=== PATIENT | female | born 1960 | race Caucasian/White ===

== ENCOUNTER 2022-03-04 20:45 | Inpatient (IN) | payer MEDICARE, OTHER ==
[~2022-03-04] VITALS: Ht 149.9 cm; Wt 81.3 kg
[2022-03-04] MEDS ORDERED: METFORMIN HCL1000 M1 PO (21:18)
[2022-03-04] MEDS ORDERED: K-TAB ER20 MEQ PO (21:19)
[2022-03-04] MEDS ORDERED: TRAZODONE HCL50 MG PO (21:19)
[2022-03-04] MEDS ORDERED: SPIRIVA RESPIMAT4 GM INH (21:20)
[2022-03-04] MEDS ORDERED: ALBUTEROL2.5 MG/3 M INH (21:20)
--- NOTE | 2022-03-04 22:36 | NUR ---
PT ARRIVED TO UNIT FROM ED. PT IS A/O, ON 3L NC. SINUS TACH HR 112. FAMILY IS AT BEDSIDE. CALL LIGHT WITHIN REACH.
--- NOTE | 2022-03-05 01:50 | NUR ---
ROUNDED ON PT. PT APPEARS TO BE SLEEPING COMFORTABLY. IV ABX COMPLETED. IV FLUIDS HUNG. CALL LGITH WITHIN REACH.
--- NOTE | 2022-03-05 07:30 | NUR ---
PATIENT RESTING IN BED. PER REPORT PATIE IS ON 5L NC. WILL OCNTINUE TO WEAN OXYGEN ABLE. PATIENT CALLS APPROPRIATELY. WILL CONTINUE TO CLOSELY MONITOR.
--- NOTE | 2022-03-05 08:00 | NUR ---
PATIENT UP TO CAMMODE ON HER OWN. PATIENT COULDNT FIND CALL LIGHT. PATIENT HAD A LARGE SEMI LIQUID STOOL. PATIENT BACK TO BED. ASSESSMENT COMPLETED. PATIENT BREATH SOUNDS COARSE AND WHEEZE THROUGHOUT. PATIENT BOWEL TONES ACTIVE. PATIENT PEDAL PULSES FAINT AND FEET ARE COLD. BREAKFAST PROVIDED. MEDICATIONS GIVEN. PATIENT REFUSED 1 UNIT OF INSULIN. WILL CONTINUE TO CLSOELY MONITOR.
--- NOTE | 2022-03-05 08:14 | NUR ---
PLACED BACK ON 5LPM PT DESATURATED TO 85% , FALL ASLEEP MID SENTENCE
--- NOTE | 2022-03-05 08:25 | EKG ---
[facility] [address] [place] [address] Signed Sinus tachycardia Minimal voltage criteria for LVH, may be normal variant ( Beny product ) Borderline ECG No previous ECGs available Confirmed by Ryley Washburn MD () on 03/05/2022 8:25:09 AM Electronically Signed By: RYLEY WASHBURN MD 03/05/22 0825 PATIENT NAME: HÉCTOR REN KARMEN Electrocardiogram DATE OF : 56 PHYSICIAN: RYLEY WASHBURN MD REPORT #: [id number] REPORT IS CONFIDENTIAL AND NOT TO BE RELEASED WITHOUT AUTHORIZATION
--- NOTE | 2022-03-05 10:30 | NUR ---
THIS RN IN TO ASSIST PATIENT UP TO THE BATHROOM. PATIENT TOLERATED WELL. PATIENT NOW RESTING IN THE CHIAR WITH A WARM BLANKET IN PLACE. PATIENT DENIES ANY OTHER NEEDS AT THIS TIME. WILL CONITNUE TO CLOSELY MONITOR.
--- NOTE | 2022-03-05 12:15 | NUR ---
PATIENT HAS FAMILY IN VISITING AT THIS TIME. WILL CONTINUE TO CLOSELY MONITOR.
--- NOTE | 2022-03-05 12:30 | NUR ---
PATIENT AWAKE AT SIDE OF BED. VITALS AND I&OS CHARTED. CALL LIGHT IN EASY REACH. NO OTHER NEEDS AT THIS TIME
--- NOTE | 2022-03-05 13:30 | NUR ---
NIECY RN IN TO ASSIST PATIENT UP TO THE BATHROOM. PATIENT TOELRATED WELL. PATIENT TURNED DOWN ON OXYGEN SUPPORT TO 3.5L NC. PATIENT TOELRATING WELL. PATINET DENIES ANY OTHER NEEDS AT THIS TIME. WILL CONTINUE TO CLOSELY MONITOR.
[2022-03-05] MEDS ORDERED: LASIX20 MG PO (15:31)
[2022-03-05] MEDS ORDERED: TORSEMIDE20 MG PO (15:32)
[2022-03-05] MEDS ORDERED: FLOVENT HFA12 G1 INH (15:33)
[2022-03-05] MEDS ORDERED: OMEPRAZOLE20 MG PO (15:34)
[2022-03-05] MEDS ORDERED: MELOXICAM10 MG PO (15:35)
--- NOTE | 2022-03-05 15:35 | NUR ---
PATIENT UP IN THE CHAIR AND AMBULATING BY HER SELF IN THE ROOM TO THE CAMMODE. REMINDED PATIENT TO CALL FOR STAND-BY ASSISTANCE. PATIENT NOW RESTING IN THE CHAIR. FRESH ICE CHIPS PROVIDED. PATIENT DENIES ANY OTHER NEEDS AT THIS TIME. WILL CONTINUE TO CLOSELY MONITOR.
[2022-03-05] MEDS ORDERED: TYLENOL EXTRA500 MG PO (15:36)
--- NOTE | 2022-03-05 15:38 | NUR ---
MED REC COMPLETE
--- NOTE | 2022-03-05 17:30 | NUR ---
THIS RN IN TO CHECK PATIENTS BLOOD SUGAR AND GET PATIENT HER DINNER. PATIENT SITTING UP IN THE CHAIR VISITING WITH HER FAMILY ON THE PHONE. PATIENT IS TEARFUL AT TIMES THAT SHE IS IN THE HOSPITAL WITHOUT HER FAMILY DURING THE HOLIDAYS. PATIENT THEN VISITING AND JOKING WITH STAFF. PATIENT MEDICATIONS GIVEN AND NOW EATING DINNER. PATIENT DENIES ANY OTHER NEEDS AT THIS TIME. WILL CONTINUE TO CLOSELY MONITOR.
--- NOTE | 2022-03-05 19:50 | NUR ---
RECEIVED REPORT FROM DAY SHIFT RN. PT IS A/O, VISITING WITH FAMILY. DENIES NEEDS/COMPLAINTS ATT.
--- NOTE | 2022-03-05 21:00 | NUR ---
PT ASSESSMENT AND MEDICATION ADMINISTRATION COMPLETED. PT IS A/O, CURRENTLY ON 3L NC. CALL LIGHT WITHIN REACH.
--- NOTE | 2022-03-05 21:55 | NUR ---
ASSISTED PT TO BEDSIDE COMMODE. PT AMBULATES WELL. IV ABX RUNNING. CALL LIGHT WITHIN REACH.
--- NOTE | 2022-03-05 22:26 | NUR ---
PT REQUESTING COUGH MEDICINE. ADMINISTERED TESSLON. DENIES ANY OTHER NEEDS ATT. IV ABX COMPLETED.
--- NOTE | 2022-03-06 | NUR ---
ROUNDED ON PT. PT APPEARS TO BE RESTING COMFORTABLY. CALL LIGHT WITHIN REACH.
--- NOTE | 2022-03-06 01:21 | NUR ---
ASSISTED PT WITH REPOSTIONING IN BED. PT IS A/O, RESPIRATIONS EVEN AND REGULAR. CALL LIGHT WITHIN REACH.
--- NOTE | 2022-03-06 03:43 | NUR ---
PT ASSESSMENT COMPLETED. CALL LIGHT WITHIN REACH.
--- NOTE | 2022-03-06 04:01 | NUR ---
ROUNDED ON PT. PT IS SITTING AT EOB A/O, RESPIRATIONS EVEN AND REGULAR. REMAINS ON 3L NC. DENIES NEEDS OR COMPLAINTS ATT.
--- NOTE | 2022-03-06 05:56 | NUR ---
TO PT ROOM FOR MEDICATION ADMINISTRATION. PT IS A/O, RESPIRATIONS EVEN AND REGULAR. REMAINS ON 3L NC. REFUSED CPAP FOR THE NIGHT. CALL LIGHT WITHIN REACH.
--- NOTE | 2022-03-06 07:30 | NUR ---
REPORT RECIEVED FROM BAR CAPTAIN RN. PATIENT WAS PRETTY RESTLESS THROUGH THE NIGHT AND DID NOT GET MUCH SLEEP. PATIENT ON 3L NC. WILL CONTINUE TO CLSOELY MONITOR.
--- NOTE | 2022-03-06 09:30 | NUR ---
PATIENTS ASSESSMENT COMPELTED. PATIENT UP IN THE CHAIR EATING HER BREAKFAST. MEDICATIONS GIVEN. PATIENT BREATH SOUNDS ARE DIMINISHED WITH OCC. WHEEZE THROUGHOUT. PATINE TON 3L NC. SPO2 92%. RR- EVEN AND UNLABORED. PATIENT UP TO THE CAMMODE ON HER OWN. PLAN OF CARE REVIEWED WITH MD AND PATIENT. WILL ORDER PHYSICAL THERAPY D/T PATIENT HAVING STAIRS AT HOME AND UNSURE HOW SHE WILL TOELRATE THEM.
--- NOTE | 2022-03-06 10:45 | NUR ---
PATIENT UP SITTING IN THE CHAIR. PATIENT PROVIDED WITH FRESH ICE CHIPS. PATIENT DENIES ANY OTHER NEEDS AT THIS TIME. WILL CONTINUE TO CLOSELY MONITOR.
--- NOTE | 2022-03-06 12:30 | NUR ---
PATIENTS DAUGHTER IN LAW IN ROOM VISITING WITH PATIENT. PATIENT IS IN GOOD SPIRITS. PATIENT FINISHED WORKING WITH PHYSICAL THERAPY. BLOOD SUGAR TAKEN AND LUNCH PROVIDED. WILL CONTINUE TO CLOSELY MONITOR.
--- NOTE | 2022-03-06 13:13 | NUR ---
SPOKE WITH MD WASHBURN WILL DO HOME OXYGEN QUALIFIER FOR PATIENT TO BE READY TO DISCHARGE TOMORROW.
--- NOTE | 2022-03-06 15:46 | NUR ---
THIS RN SET PATIENT UP FOR THE SHOWER. PATIENT LINEN CHANGED. PATIENT ABLE TO SHOWER HERSELF WITH NO ISSUES. MD CIFUENTES WAS BY TO SING PAPERWORK FOR HOME O2. ORDERS FAXED. THIS RN SPOKE WITH ANTONY GUEVARA AND HE IS IN TOWN AND WILL DELIVER HER SUPPLIES TODAY. WILL CONTINUE TO CLOSELY MONITOR.
--- NOTE | 2022-03-06 18:17 | NUR ---
PATIENTS FAMILY IN TO CELEBRATE MILAGRO WITH HER. PATIENT SITTING AT THE EDGE OF THE BED. PATIENT TOLERATED WELL. PATIENT UP TO BATHROOM WHEN JAZMINEIYL LEFT AND NOW RESTING BACK IN BED. PER PATIENT ANTONY CAME AND SET-UP HOME O2 THIS AFTERNOON. WILL CONTINUE TO CLOSELY MONITOR.
--- NOTE | 2022-03-06 20:05 | NUR ---
PT SITTING AT SIDE OF BED, COMPLETED NEB TREATMENT WITH RClinton, NOW HAVING EVENING SNACK AFTER CBG
--- NOTE | 2022-03-06 21:31 | NUR ---
HS MED PASS AND ASSESSMENT COMPLETE. PT IS EXCITED ABOUT DISCHARING PLAN FOR TOMORROW, EQUIPMENT ALREADY SET UP AT HOME OF HOME O2. EDUCATION ON MEDICATIONS AND SIDE EFFECTS
--- NOTE | 2022-03-06 23:00 | NUR ---
PT REPORTS HEARTBURN, ON UNIT, ORDERED MAALOX. ADMINSTERED. NO OTHER CONCERNS OR COMPLAINTS.
--- NOTE | 2022-03-07 00:02 | NUR ---
PT RESTING QUIELTY IN BED RESPIRATION RATE 18/MIN, 93% ON 2L N.C., NO DISTRESS NOTED AT THIS TIME.
--- NOTE | 2022-03-07 05:14 | NUR ---
PT ALERT AND ORIENTED THIS AM, REQUESTED SNACK AND WARM BLANKET, SHE SAID SHE WAS ABLE TO SLEEP MUCH BETTER LAST NIGHT. NO NEW CONCERNS, PLAN IS TO DISCHARGE TODAY.
--- NOTE | 2022-03-07 07:45 | NUR ---
RN IN ROOM TO VISUALIZE PT AFTER REPORT - PT SITTING UP ON EDGE OF BED ATTENDEING TO ADLS INDEPENDENTLY. CBG 135, NO INSULIN NEEDED. BREAKFAST SERVED. PT UPDATED ON POC TO DC HOME TODAY, DENIES QUESTIONS AT THIS TIME, IS ANXIOUS TO GET HOME.
[2022-03-07] MEDS ORDERED: LEVOFLOXACIN750 MG PO (08:38)
[2022-03-07] MEDS ORDERED: OSELTAMIVIR PHO75 MG PO (08:39)
[2022-03-07] MEDS ORDERED: PREDNISONE20 MG PO (08:40)
--- NOTE | 2022-03-07 09:00 | NUR ---
DAUGHTER IN LAW IN ROOM - PT DRESSED BY SELF AND BELONGINGS PACKED. DISCHARGE ORDER RECEIVED BY . PT AND DAUGHTER STATE [place] [facility] SET UP AT HOME. WILL NEED HOME TRAVEL TANK. PT REMAINS ON 2L VIA OR. PHARMACY AND RN WORKING ON DC;
[2022-03-07] MEDS ORDERED: ALBUTEROL2.5 MG/3 M INH (09:55)
--- NOTE | 2022-03-07 09:55 | NUR ---
SCHEDULED MEDS PROVIDED. NO OTHER NEEDS AT THIS TIME. CALL LIGHT IN REACH.
== END 2022-03-07 11:30 | disposition home or self-care (01) | DRG 193 ==
LOC: ED 20:45 → CCU 23:10
PROVIDERS: ADMIT Family Medicine; ATTEND Internal Medicine
PROC: 5A09357 Assistance with Respiratory Ventilation, Less than 24 Consecutive Hours, Continuous Positive Airway Pressure (ICD-10-PCS; principal; 2022-03-05)
DX: J10.08 Influenza due to other identified influenza virus with other specified pneumonia (principal); J96.01 Acute respiratory failure with hypoxia; Z20.822 Contact with and (suspected) exposure to COVID-19; J44.1 Chronic obstructive pulmonary disease with (acute) exacerbation; J15.9 Unspecified bacterial pneumonia; Z66 Do not resuscitate; E11.9 Type 2 diabetes mellitus without complications; Z88.0 Allergy status to penicillin; Z88.8 Allergy status to other drugs, medicaments and biological substances; Z79.84 Long term (current) use of oral hypoglycemic drugs; Z79.899 Other long term (current) drug therapy
CPT/HCPCS: 36415; 71045; 80053; 81001; 83605; 85025; 85610; 85730; 87502; 93005; 93010; 94640; 94660; 94667; 94668; 94761; A9270; C9803; J0456; J0696; J1650; J1815; J1885; J1956; J2920; J2930; J7121; J7512; U0003

== ENCOUNTER 2023-08-18 05:31 | Emergency (ER) | payer MEDICARE, OTHER ==
[~2023-08-18] VITALS: Ht 160 cm; Wt 77.5 kg
[~2023-08-18 05:31] MED LIST: ALBUTEROL2.5 MG/3 M INH; CLINDAMYCIN HC300 MG PO; FLOVENT HFA12 G1 INH; K-TAB ER20 MEQ PO; LASIX20 MG PO; LEVOFLOXACIN750 MG PO; MELOXICAM10 MG PO; METFORMIN HCL1000 M1 PO; OMEPRAZOLE20 MG PO; OSELTAMIVIR PHO75 MG PO; PREDNISONE20 MG PO; SPIRIVA RESPIMAT4 GM INH; TORSEMIDE20 MG PO; TRAZODONE HCL50 MG PO; TYLENOL EXTRA500 MG PO
--- OUTSIDE RECORDS SUMMARY | 2023-08-18 05:36 | XMS ---
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 Armida has no Care Guidelines for this patient. [place] VISIT COUNT (12 MO.) 2 [facility]. TOTAL 2 NOTE: Visits indicate total known visits. ED/[facility] [place] VISIT TRACKING (12 MO.) 08/18/2023 05:31 [facility] TYPE: Emergency COMPLAINT: - DENTAL PAIN 08/16/2023 06:[address] [facility] [place] TYPE: Emergency COMPLAINT: - DENTAL PROBLEM DIAGNOSES: - Allergy status to other antibiotic agents - Allergy status to other drugs, medicaments and biological substances - Allergy status to penicillin - Chronic obstructive pulmonary disease, unspecified - ad terminal makeup operator (current) use of oral hypoglycemic drugs - Other joint terminal attack controller (current) drug therapy - Other specified disorders of teeth and supporting structures - Periapical abscess without sinus INPATIENT VISIT TRACKING (12 MO.) No inpatient visits to display in this time frame [email or web address]
[2023-08-18] MEDS ORDERED: HYDROCODONE BIT/ACETAMINOPHEN 5/325 MG 1 TAB HOME.PACK PO ONE (06:15)
[2023-08-18] MEDS ORDERED: DEXAMETHASONE SOD PHOS 10 MG/ML VIAL PO ONE (06:30)
[2023-08-18] MEDS ORDERED: HYDROCODON-ACE1 EA10 PO (06:33)
[2023-08-18 06:58] VITALS: BP 152/84
== END 2023-08-18 07:01 | disposition home or self-care (01) ==
LOC: ED 05:31
DX: K04.7 Periapical abscess without sinus (principal); J44.9 Chronic obstructive pulmonary disease, unspecified; G47.30 Sleep apnea, unspecified; E11.9 Type 2 diabetes mellitus without complications; Z88.1 Allergy status to other antibiotic agents; Z79.899 Other long term (current) drug therapy; Z79.84 Long term (current) use of oral hypoglycemic drugs
CPT/HCPCS: 99282; A9270; J1100

== ENCOUNTER 2023-08-21 05:15 | Emergency (ER) | payer MEDICARE, OTHER ==
[~2023-08-21] VITALS: Ht 160 cm; Wt 77.0 kg
[~2023-08-21 05:15] MED LIST changes: +HYDROCODON-ACE1 EA10 PO
--- OUTSIDE RECORDS SUMMARY | 2023-08-21 05:17 | XMS ---
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 Armida has no Care Guidelines for this patient. [place] VISIT COUNT (12 MO.) 3 [facility] [place]. TOTAL 3 NOTE: Visits indicate total known visits. ED/C VISIT TRACKING (12 MO.) 08/21/2023 05:[address] [facility] [address] [facility] [place] TYPE: Emergency COMPLAINT: - TOOTH INFECTION 08/18/2023 05:31 [facility] [place] TYPE: Emergency COMPLAINT: - DENTAL PAIN DIAGNOSES: - Allergy status to other antibiotic agents - Chronic obstructive pulmonary disease, unspecified - Jaw pain - technician terminal and repeater (current) use of oral hypoglycemic drugs - Other long-term (current) drug therapy - Periapical abscess without sinus - Sleep apnea, unspecified - Type 2 diabetes mellitus without complications 08/16/2023 06:19 [facility] [place] [place] TYPE: Emergency COMPLAINT: - DENTAL PROBLEM DIAGNOSES: - Allergy status to other antibiotic agents - Allergy status to other drugs, medicaments and biological substances - Allergy status to penicillin - Chronic obstructive pulmonary disease, unspecified - half-way (current) use of oral hypoglycemic drugs - Other long-term (current) drug therapy - Other specified disorders of teeth and supporting structures - Periapical abscess without sinus INPATIENT VISIT TRACKING (12 MO.) No inpatient visits to display in this time frame [email or web address]
[2023-08-21] MEDS ORDERED: DEXAMETHASONE SOD PHOS 10 MG/ML VIAL IV ONE (06:00)
[2023-08-21] MEDS ORDERED: FAMOTIDINE 20 MG/ 2 ML VIAL IV ONE (06:00)
[2023-08-21] MEDS ORDERED: HYDROmorphone HCL 1 MG/ML SYR IV PRN (06:00)
[2023-08-21] MEDS ORDERED: ondansetron HCL 4 MG/2 ML VIAL IV ONE (06:00)
[2023-08-21 06:12] LABS: BASOPHILS 0.7 % (0-2); EOSINOPHILS 1.2 % (0-6); HEMATOCRIT 36.2 % (35.0-50.0); HEMOGLOBIN 11.7 g/dL (12.0-18.0); LYMPHOCYTES 15.1 % (24-44); MCH 29.4 (27-36); MCHC 32.4 g/dl (30-36); MCV 90.7 fl (81-99); MONOCYTES 10.9 % (0-12); NEUTROPHILS 72.1 % (39-80); PLATELET COUNT 298 K/uL (140-440); RBC 3.99 M/ul (4.3-5.7); RDW 14.1 (10.5-15.0)
[2023-08-21 06:23] LABS: ALBUMIN 3.2 g/dL (3.4-5.0); ALBUMIN/GLOBULIN RATIO 0.82 (1.1-2.4); ANION GAP 13.8 (7-21); BILIRUBIN, TOTAL 0.3 ng/dL (0.2-1.0); BUN/CREATININE RATIO 22.22 (6.0-28.6); CALCIUM 8.9 mg/dL (8.5-10.1); CREATININE, SERUM 0.99 mg/dL (0.55-1.02); POTASSIUM 3.8 mmol/L (3.5-5.1); PROTEIN, TOTAL 7.1 g/dL (6.4-8.2)
[2023-08-21] MEDS ORDERED: AZITHROMYCIN 500 MG in DEXTROSE 5% 250 ML IV ONE ×2 (06:45→07:45)
[2023-08-21] MEDS ORDERED: AZITHROMYCIN/DEXTROSE 500 MG/250 ML BAG IV ONE (07:30)
[2023-08-21] MEDS ORDERED: LIDOCAINE 2% VISCOUS 6 ML SYR MM ONE (08:15)
[2023-08-21] MEDS ORDERED: LIDOCAINE 2% VISCOUS 6 ML SYR TOP ONE (08:15)
[2023-08-21] MEDS ORDERED: PERIDEX473 M1 MM (09:00)
[2023-08-21] MEDS ORDERED: AZITHROMYCIN 500 MG in DEXTROSE 5% 250 ML IV SCH (09:00)
[2023-08-21 09:14] VITALS: BP 166/97
== END 2023-08-21 09:14 | disposition home or self-care (01) ==
LOC: ED 05:15
PROVIDERS: Internal Medicine
DX: K04.7 Periapical abscess without sinus (principal); J44.9 Chronic obstructive pulmonary disease, unspecified; G47.30 Sleep apnea, unspecified; E11.9 Type 2 diabetes mellitus without complications; Z88.1 Allergy status to other antibiotic agents; Z88.0 Allergy status to penicillin; Z88.8 Allergy status to other drugs, medicaments and biological substances; Z79.899 Other long term (current) drug therapy; Z79.84 Long term (current) use of oral hypoglycemic drugs
CPT/HCPCS: 36415; 41800; 70491; 80053; 85025; 86140; 99283-25; J0456; J1100; J1170; J2405; Q9967

== ENCOUNTER 2023-09-13 03:25 | Inpatient (IN) | payer MEDICARE, OTHER ==
[2023-09-13] VITALS (8 sets, daily range): BP systolic 146–162; BP diastolic 76–91
[~2023-09-13] VITALS: Ht 160 cm; Wt 79.0 kg
[~2023-09-13 03:25] MED LIST changes: +PERIDEX473 M1 MM
--- OUTSIDE RECORDS SUMMARY | 2023-09-13 03:26 | XMS ---
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 Armida has no Care Guidelines for this patient. [place] [facility] MO[facility] NOTE: Visits indicate total known visits. ED/C VISIT TRACKING (12 MO.) [facility] [place] [facility] COMPLAINT: - WOUND CHECK 08/21/2023 05:15 [facility] [place] TYPE: Emergency COMPLAINT: - TOOTH INFECTION DIAGNOSES: - Allergy status to other antibiotic agents - Allergy status to other drugs, medicaments and biological substances - Allergy status to penicillin - Chronic obstructive pulmonary disease, unspecified - [facility] (current) use of oral hypoglycemic drugs - Other keno terminal operator (current) drug therapy - Periapical abscess without sinus - Sleep apnea, unspecified - Type 2 diabetes mellitus without complications 08/18/2023 05:[address] [facility] [address] [facility] [place] TYPE: Emergency COMPLAINT: - DENTAL PAIN DIAGNOSES: - Allergy status to other antibiotic agents - Chronic obstructive pulmonary disease, unspecified - Jaw pain - termite inspector (current) use of oral hypoglycemic drugs - Other senior care (current) drug therapy - Periapical abscess without sinus - Sleep apnea, unspecified - Type 2 diabetes mellitus without complications 08/16/2023 06:[address] [facility] [address] [facility] [place] TYPE: Emergency COMPLAINT: - DENTAL PROBLEM DIAGNOSES: - Allergy status to other antibiotic agents - Allergy status to other drugs, medicaments and biological substances - Allergy status to penicillin - Chronic obstructive pulmonary disease, unspecified - termite inspector (current) use of oral hypoglycemic drugs - Other keno terminal operator (current) drug therapy - Other specified disorders of teeth and supporting structures - Periapical abscess without sinus INPATIENT VISIT TRACKING (12 MO.) No inpatient visits to display in this time frame [email or web address]
[2023-09-13] MEDS ORDERED: MORPHINE SULFATE 4 MG/ML VIAL IV ONE (03:45)
[2023-09-13] MEDS ORDERED: CLINDAMYCIN PHOSPHATE/D5W 900 MG/50 ML BAG IV ONE (03:45)
[2023-09-13 03:58] LABS: BASOPHILS 0.8 % (0-2)
[2023-09-13 04:01] LABS: EOSINOPHILS 2.9 % (0-6); HEMATOCRIT 35.3 % (35.0-50.0); HEMOGLOBIN 11.3 g/dL (12.0-18.0); LYMPHOCYTES 23.2 % (24-44); MCH 28.7 (27-36); MCHC 31.9 g/dl (30-36); MONOCYTES 11.4 % (0-12); NEUTROPHILS 61.7 % (39-80); PLATELET COUNT 343 K/uL (140-440); RBC 3.92 M/ul (4.3-5.7); RDW 14.4 (10.5-15.0)
[2023-09-13 04:13] LABS: ALBUMIN 2.9 g/dL (3.4-5.0); ALBUMIN/GLOBULIN RATIO 0.71 (1.1-2.4); ANION GAP 11.1 (7-21); BILIRUBIN, TOTAL 0.2 ng/dL (0.2-1.0); BUN/CREATININE RATIO 20.45 (6.0-28.6); CALCIUM 8.5 mg/dL (8.5-10.1); CREATININE, SERUM 0.88 mg/dL (0.55-1.02); POTASSIUM 4.1 mmol/L (3.5-5.1)
[2023-09-13] MEDS ORDERED: ERTAPENEM SODIUM 1 GM in SODIUM CHLORIDE 0.9% 50 ML IV ONE (06:30)
[2023-09-13] MEDS ORDERED: ondansetron HCL 4 MG/2 ML VIAL IV PRN (07:00)
[2023-09-13] MEDS ORDERED: ACETAMINOPHEN 325 MG TAB PO PRN (07:00)
[2023-09-13] MEDS ORDERED: MORPHINE SULFATE 4 MG/ML VIAL IV PRN (07:00)
--- NOTE | 2023-09-13 07:40 | NUR ---
PT TO RM VIA STRETCHER FROM ER. REPORT RECEIVED FROM GILDA AND DENISE RNS. PT'S SON MAGED AT BEDSIDE. PT ALERT AND ORIENTED X4, CALL LIGHT WITHIN REACH. PT REPORTS PAIN 4/10 AND TOLERABLE AT THIS TIME. PT HAS GAUZE DRSG DRAINING MOD AMT OF SEROSANGUANOUS DRAINAGE AT R) LOWER JAW ABCESS DRAINAGE SITE.
[2023-09-13] MEDS ORDERED: ERTAPENEM SODIUM 1 GM in SODIUM CHLORIDE 0.9% 50 ML IV SCH (09:00)
[2023-09-13] MEDS ORDERED: ENOXAPARIN SODIUM 40 MG/0.4 ML SYR SUB-Q SCH (09:00)
--- NOTE | 2023-09-13 09:20 | NUR ---
IN ROOM TO SPEAK WITH PATIENT. SHE IS RESTING WITH EYES CLOSED AND RESPIRATIONS EVEN AND UNLABORED. ALLOWED TO REST AT THIS TIME.
--- NOTE | 2023-09-13 10:18 | NUR ---
PATIENT IN BED AT THIS TIME. VITALS AND I&O'S CHARTED. CALL LIGHT WITHIN REACH, NO FURTHER NEEDS AT THIS TIME.
[2023-09-13] MEDS ORDERED: PHARMACY RENAL DOSE ADJUSTMENT 1 DOSE MISC PO SCH (12:00)
[2023-09-13] MEDS ORDERED: FUROSEMIDE 20 MG TAB PO SCH (12:28)
[2023-09-13] MEDS ORDERED: PANTOPRAZOLE SODIUM 40 MG TABEC PO SCH (12:29)
--- NOTE | 2023-09-13 12:43 | NUR ---
PT SITTING UP ON THE SIDE OF HER BED EATING LUNCH. CALL LIGHT WITHIN REACH.
[2023-09-13] MEDS ORDERED: IBLOOD GLUCOSE TEST STRIP 1 EA TEST XX PRN (12:45)
[2023-09-13] MEDS ORDERED: DEXTROSE 5% 1,000 ML IV PRN (12:45)
[2023-09-13] MEDS ORDERED: GLUCAGON,HUMAN RECOMBINANT 1 MG/ML VIAL SUB-Q PRN (12:45)
[2023-09-13] MEDS ORDERED: HYDROCODONE/APAP 10/325 1 TAB PO PRN (12:45)
[2023-09-13] MEDS ORDERED: ATORVASTATIN CA40 MG PO (12:45)
[2023-09-13] MEDS ORDERED: METFORMIN HCL1000 MG PO (12:45)
[2023-09-13] MEDS ORDERED: DEXTROSE 50% 50 ML SYR IV PRN ×2 (12:45)
[2023-09-13] MEDS ORDERED: FUROSEMIDE20 MG PO (12:45)
[2023-09-13] MEDS ORDERED: MELOXICAM15 MG PO (12:46)
[2023-09-13] MEDS ORDERED: GLIPIZIDE ER2.5 MG PO (12:46)
[2023-09-13] MEDS ORDERED: LOSARTAN POTAS100 MG PO (12:46)
[2023-09-13] MEDS ORDERED: POTASSIUM CHLO10 ME2 PO (12:49)
[2023-09-13] MEDS ORDERED: OMEPRAZOLE10 MG PO (12:49)
[2023-09-13] MEDS ORDERED: TRAMADOL HCL50 MG PO (12:50)
[2023-09-13] MEDS ORDERED: SPIRIVA RESPIMAT4 G1 INH (12:50)
[2023-09-13] MEDS ORDERED: METRONIDAZOLE500 MG PO (12:51)
--- NOTE | 2023-09-13 13:39 | NUR ---
UR CLINICAL REVIEW: 2 MN FOR [facility]ERSAL[facility] CRITERIA FOR INPT STAY MEDICARE INPT 09/13/23 @ 0716 ORDER MATCHES REG NO AUTH REQUIRED PER MEDICARE CRITERIA DISCHARGE TO HOME WHEN STABLE
--- NOTE | 2023-09-13 14:05 | NUR ---
PAIN MED GIVEN ORDERED FOR PAIN 6/10 TO R) JAW ABSCESS SITE.
--- NOTE | 2023-09-13 15:05 | NUR ---
PATIENT ALERT AND ORIENTED, SITTING UP IN BED. VERIFIED DEMOGRAPHICS. PATIENT LIVES ALONE IN APARTMENT, DOES HAVE TO USE STAIRS. STATES SHE IS STILL ABLE TO USE STAIRS BUT IT IS GETTING INCREASINGLY MORE DIFFICULT. STATES SHE HAS A CPAP, OXYGEN FROM [employer], AND A NEBULIZER. STATES SHE NO LONGER DRIVES, HER SON, MAGED, PROVIDES TRANSPORTATION IF SHE NEEDS IT. RECEIVES FOOD STAMPS, $143/MONTH. STATES SHE IS HAVING ISSUES PAYING HER ELECTRIC, BUT DOES RECEIVE ASSISTANCE TO PAY THAT. WHEN SHE BUYS GROCERIES, SHE HAS THEM DELIVERED SO SHE DOES NOT HAVE TO FIND TRANSPORTATION FOR SHOPPING. PATIENT IS OPEN TO SPEAK WITH [employer] REGARDING MEALS ON WHEELS AND REQUESTS TO BE SET UP WITH SERVICE. CURRENTLY DENIES OTHER NEEDS.
--- NOTE | 2023-09-13 15:14 | NUR ---
CALLED [employer] TO SET UP MEALS ON WHEELS, NO ANSWER. MESSAGE LEFT FOR EDOUARD TO PLEASE CALL BACK TO SET UP MEALS ON WHEELS.
--- NOTE | 2023-09-13 16:08 | NUR ---
SPOKE WITH EDOUARD POLANCO TO SET UP MEALS ON WHEELS SERVICES.
--- NOTE | 2023-09-13 16:27 | NUR ---
PATIENT IN BED AT THIS TIME. CALL LIGHT WITHIN REACH, NO FURTHER NEEDS AT THIS TIME.
[2023-09-13] MEDS ORDERED: Insulin Regular, Human 100 UNIT/ML ML SUB-Q SCH (17:00)
[2023-09-13] MEDS ORDERED: IBLOOD GLUCOSE TEST STRIP 1 EA TEST XX SCH (17:00)
--- NOTE | 2023-09-13 17:12 | NUR ---
pt sitting up in bed eating dinner with son at bedside. call light within reach
--- NOTE | 2023-09-13 18:44 | NUR ---
PT ASLEEP WITH RESPIRATIONS EVEN AND UNLABORED. CALL LIGHT WITHIN REACH.
--- NOTE | 2023-09-13 19:52 | NUR ---
REPORT RECIEVED BY DAY SHIFT RN. PATIENT RESTING IN BED WITH EYES CLOSED. RESPIRATIONS EVEN AND UNLABORED. CALL LIGHT IN REACH.
--- NOTE | 2023-09-13 22:20 | NUR ---
PATIENT RESTING IN BED. BS OBTAINED AND RECORDED. SS INSULIN ADMINISTERED, SEE MAR. GAUZE ON CHIN IS SATURATED WITH SEROSANQUINEOUS FLUID. PATIENT REQUESTING GAUZE ON CHIN BE CHANGE. NEW GAUZE PLACED FOR PATIENT COMFORT. PATIENT STATES "IT LOOKS SO MUCH BETTER THAN WHEN I CAME TO THE ER". PATIENT HAS NO FURTHER NEEDS. CALL LIGHT IN REACH.
--- NOTE | 2023-09-13 23:02 | NUR ---
CALL LIGHT ANSWERED. pt STATES IV IS UNCOMFORTABLE. IV DC'D IN LEFT AC. NEW IV IN LEFT FOREARM. ICE WATER REFILLED. CALL LIGHT IN REACH.
[2023-09-14] VITALS (11 sets, daily range): BP systolic 128–178; BP diastolic 59–95
--- NOTE | 2023-09-14 01:12 | NUR ---
PATIENT RESTING IN BED ON BACK WITH EYES CLOSED. RESPIRATIONS EVEN AND UNLABORED. CALL LIGHT IN REACH.
--- NOTE | 2023-09-14 03:15 | NUR ---
CALL LIGHT ANSWERED. PATIENT REPORTING 7/10 JAW, NECK AND HEADACHE PAIN. PRN PAIN MEDICATION ADMINISTERED PER PATIENT REQUEST. GAUZE ON JAW IS C/D/I. NO FURTHER NEEDS. CALL LIGHT IN REACH. PUDDING PROVIDED.
--- NOTE | 2023-09-14 05:45 | NUR ---
PATIENT RESTING IN BED. SCHEDULED IV ABX INFUSING PER ORDER. VS AND I&Os OBTAINED AND RECORDED. PATIENT DENIES PAIN AT THIS TIME. NO FURTHER NEEDS. CALL LIGHT IN REACH.
[2023-09-14 06:00] LABS: EOSINOPHILS 2.9 % (0-6); HEMATOCRIT 36.5 % (35.0-50.0); HEMOGLOBIN 11.9 g/dL (12.0-18.0); LYMPHOCYTES 23.1 % (24-44); MCH 29.2 (27-36); MCHC 32.7 g/dl (30-36); MCV 89.3 fl (81-99); MONOCYTES 9.9 % (0-12); NEUTROPHILS 63.1 % (39-80); PLATELET COUNT 377 K/uL (140-440); RBC 4.09 M/ul (4.3-5.7); RDW 14.1 (10.5-15.0)
[2023-09-14] MEDS ORDERED: MEROPENEM 1,000 MG in SODIUM CHLORIDE 0.9% 100 ML IV SCH (06:00)
[2023-09-14 06:16] LABS: ALBUMIN 2.8 g/dL (3.4-5.0); ALBUMIN/GLOBULIN RATIO 0.61 (1.1-2.4); ANION GAP 10.4 (7-21); BILIRUBIN, TOTAL 0.2 ng/dL (0.2-1.0); BUN/CREATININE RATIO 16.25 (6.0-28.6); CALCIUM 8.9 mg/dL (8.5-10.1); CREATININE, SERUM 0.8 mg/dL (0.55-1.02); POTASSIUM 4.4 mmol/L (3.5-5.1); PROTEIN, TOTAL 7.4 g/dL (6.4-8.2)
--- NOTE | 2023-09-14 07:50 | NUR ---
PT SITTING UP IN BED WITH CALL LIGHT WITHIN REACH. NO REQUESTS AT THIS TIME. ASSESSMENT COMPLETE. PT HAS CATHERINE ESPINOZAG TO R) LOWER JAW, CDI.
--- NOTE | 2023-09-14 08:15 | NUR ---
PATIENT IN BED AT THIS TIME. BLOOD SUGAR TAKEN AND CHARTED. CALL LIGHT WITHIN REACH, NO FURTHER NEEDS AT THIS TIME.
[2023-09-14] MEDS ORDERED: ERTAPENEM SODIUM 1 GM in SODIUM CHLORIDE 0.9% 50 ML IV SCH (09:00)
--- NOTE | 2023-09-14 09:20 | NUR ---
PT CURRENTLY UP SITTING AT SIDE OF BED, MEDS GIVEN. PT UP OFTEN AMBULATING AROUND ROOM, TOLERATING WELL. STATES PAIN IS TOLERABLE TO JAW AT THIS TIME.
--- NOTE | 2023-09-14 10:01 | NUR ---
PATIENT IN BED AT THIS TIME. VITALS AND I&O'S CHARTED. CALL LIGHT WITHIN REACH, NO FURTHER NEEDS AT THIS TIME.
--- NOTE | 2023-09-14 12:00 | NUR ---
PT SITTING UP AT SIDE OF BED WATCHING TV WITH SON IN ROOM. NO REQUESTS AT THIS TIME. CALL LIGHT WITHIN REACH.
--- NOTE | 2023-09-14 13:05 | NUR ---
PT FINISHED LUNCH AND STATES HER PAIN TO R) JAW IS STARTING TO DECREASE. PT STATES SHE IS GOING TO TRY TO TAKE A NAP. CALL LIGHT WITHIN REACH.
--- NOTE | 2023-09-14 13:15 | NUR ---
VISITED DURING SPIRITUAL CARE ROUNDS. PT APPEARED TO BE SLEEPING. DID NOT DISTURB. PROVIDED PRAYER.
[2023-09-14] MEDS ORDERED: TRAZODONE HCL50 MG PO (13:57)
[2023-09-14] MEDS ORDERED: MEROPENEM 500 MG in SODIUM CHLORIDE 0.9% 100 ML IV SCH (14:00)
[2023-09-14] MEDS ORDERED: FLUTICASONE PRO12 GM NAS (14:02)
[2023-09-14] MEDS ORDERED: VENTOLIN HFA18 GM INH (14:03)
--- NOTE | 2023-09-14 14:05 | NUR ---
medications reconciled using pharmacy records and PCP progress notes
--- NOTE | 2023-09-14 14:43 | NUR ---
PT ASLEEP WITH RESPIRATIONS EVEN AND UNLABORED, CALL LIGHT WITHIN REACH.
--- NOTE | 2023-09-14 15:24 | NUR ---
PATIENT IN BED AT THIS TIME. VITALS AND I&O'S CHARTED AT 1400. CALL LIGHT WITHIN REACH, NO FURTHER NEEDS AT THIS TIME.
--- NOTE | 2023-09-14 16:16 | NUR ---
IV ANTIBIOTIC INFUSING, IV SITE WNL. CALL LIGHT WITHIN REACH, NO REQUESTS AT THIS TIME.
--- NOTE | 2023-09-14 17:13 | NUR ---
pt sitting up at side of bed eating dinner. call light within reach.
--- NOTE | 2023-09-14 19:36 | NUR ---
REPORT RECIEVED FROM DAY SHIFT RN. PATIENT RESTING IN CHAIR WITH EYES CLOSED. RESPIRATIONS EVEN AND UNLABORED. CALL LIGHT IN REACH.
--- NOTE | 2023-09-14 20:20 | NUR ---
PATIENT RESTING IN BED. ASSESSMENT COMPLETE. PATIENT REPORTS 10/10 JAW PAIN. PRN PAIN MEDICATION ADMINSITERED. SCHEDULED IV ABX INFUSING PER ORDER. BS OBTAINED AND RECORDED. SS INSULIN ADMINISTERED. FACIAL GAUZE C/D/I. VS AND I&Os OBTAINED AND RECORDED. IV FLUSHES WNL. PATIENT DENIES NEEDS AT THIS TIME. CALL LIGHT IN REACH.
--- NOTE | 2023-09-14 23:11 | NUR ---
PATIENT RESTING IN BED WITH EYES CLOSED. RESPIRATIONS EVEN AND UNLABORED. CALL LIGHT IN REACH.
--- NOTE | 2023-09-14 23:55 | NUR ---
NIO BOWEL MEDICATION ORDERED PER PATIENT REQUEST.
[2023-09-15] VITALS (8 sets, daily range): BP systolic 137–178; BP diastolic 74–92
--- NOTE | 2023-09-15 00:10 | NUR ---
PATIENT RESTING IN BED AND DENIES FURTHER NEEDS. CALL LIGHT IN REACH. REPIRATIONS EVEN AND UNLABORED.
--- NOTE | 2023-09-15 01:58 | NUR ---
NEW BAG IV ABX INFUSING PER ORDER. PATIENT REPORTS 8/10 HEADACHE AND JAW PAIN. PRN PAIN MEDICATION ADMINISTERED. GAUZE REMOVED FROM PATIENT R SIDE OF JAW. DRAINAGE NOTED INSIDE GAUZE. PRUNE JUICE PROVIDED, PUDDING PROVIDED. NO FURTHER NEEDS. CALL LIGHT IN REACH.
--- NOTE | 2023-09-15 02:11 | NUR ---
CALL LIGHT ANSWERED. PATIENT REQUESTING GAUZE TO BE PUT BACK ON HER CHIN. PATIENT LOOKED IN MIRROR AND STATES "OH MY GOSH, IT LOOKS SO MUCH BETTER!. THIS RN PUT GAUZE OVER WOUND ON CHIN WITH 2 PEICES OF TAPE TO HOLD IT IN PLACE. NO FURTHER NEEDS AT THIS TIME. CALL LIGHT IN REACH.
--- NOTE | 2023-09-15 04:14 | NUR ---
PATIENT RESTING IN BED WITH EYES CLOSED. RESPIRATIONS EVEN AND UNLABORED. CALL LIGHT IN REACH.
--- NOTE | 2023-09-15 05:16 | NUR ---
CALL LIGHT ANSWERED. PT NEEDED TO USE BATHROOM. PAYROLL PROFESSIONAL SBA TO BATHROOM. OUTPUT NOTED. PAYROLL PROFESSIONAL OBTAINED VITALS AND I&O. PT STATES NO FURTHER NEEDS AT THIS TIME. CALL LIGHT WITHIN REACH.
--- NOTE | 2023-09-15 07:20 | NUR ---
REPORT RECEIVED FROM NIGHT RN - PT UP IN CHAIR AND COMPLAINING OF HEADACHE AND STOMACH ACHE. CBG OBTAINED PER PT REQUEST. WNL.
[2023-09-15 07:42] LABS: BASOPHILS 0.9 % (0-2); EOSINOPHILS 2.7 % (0-6); HEMATOCRIT 38.6 % (35.0-50.0); HEMOGLOBIN 12.7 g/dL (12.0-18.0); LYMPHOCYTES 22.9 % (24-44); MCH 29.3 (27-36); MCHC 32.8 g/dl (30-36); MCV 89.2 fl (81-99); MONOCYTES 11.7 % (0-12); NEUTROPHILS 61.8 % (39-80); PLATELET COUNT 382 K/uL (140-440); RBC 4.33 M/ul (4.3-5.7); RDW 14.1 (10.5-15.0)
[2023-09-15 07:56] LABS: ANION GAP 10.7 (7-21); BUN/CREATININE RATIO 27.14 (6.0-28.6); CALCIUM 9.5 mg/dL (8.5-10.1); CREATININE, SERUM 0.7 mg/dL (0.55-1.02); POTASSIUM 4.7 mmol/L (3.5-5.1)
--- NOTE | 2023-09-15 08:15 | NUR ---
SANITARIAN in room. Pt stated, "I am not feeling real well this morning." Pt positive for dizziness and headache. Pt requesting breakfast. RN notified of pt symptoms. RN approved administration of juice. Breakfast and juice brought to the room. Call light within reach.
[2023-09-15 08:54] LABS: ERYTHROCYTE SEDIMENTATION RATE 88
[2023-09-15] MEDS ORDERED: SENNOSIDES/DOCUSATE 1 EA TAB PO SCH (09:00)
--- NOTE | 2023-09-15 09:40 | NUR ---
PT UP IN CHAIR, ALERT. COMPLAINS OF HEADACHE AND IS REQUESTING PRN FOR THIS. GAUZE TO JAW IS C/D/I. PT STATES SHE FEELS LIKE SWELLING AND PAIN IS IMPROVING. IV SITE INFILTRATED, NEW SITE STARTED ON RIGHT FOREARM. PT INDEPENDENT IN ROOM TO BATHROOM. BOWEL CARE STARTED FOR COMPLAINTS OF CONSTIPATION. CALL LIGHT IN REACH.
--- NOTE | 2023-09-15 11:00 | NUR ---
PT RESTING IN BED WITH EYES CLOSED, RR EVEN AND UNLABORED. CALL LIGHT IN REACH.
--- NOTE | 2023-09-15 12:23 | NUR ---
INSULIN COVERAGE ADMINISTERED - PT DENIES PAIN. SITTING ON EDGE OF BED EATING LUNCH. CALL LIGHT IN REACH, DENIES NEEDS.
--- NOTE | 2023-09-15 13:40 | NUR ---
RECEIVED REPORT FROM ARNOLD SMITH. ASSUMING CARE OF PT.
--- NOTE | 2023-09-15 14:10 | NUR ---
IV PUMP ALARMING, INFUSION COMPLETE. IV SALINE LOCKED. PT STATES NO CURRENT NEEDS. CALL LIGHT WITHIN REACH.
--- NOTE | 2023-09-15 16:32 | NUR ---
PT IV WRAPPED, PT UP TO SHOWER. PT STATES SHE IS HAVING NECK PAIN AND A HEADACHE THAT IS 9/10 PAIN, REQUESTS PRN PAIN MEDICATION, GIVEN. PT STATES NO FURTHER NEEDS AT THIS TIME, CALL LIGHT WITHIN REACH.
--- NOTE | 2023-09-15 16:33 | NUR ---
PATIENT IS RESTING IN BED. SHE DIDNT FEEL VERY WELL THIS MORNING. PT HAS WATER AND CALL LIGHT WITHIN REACH.
--- NOTE | 2023-09-15 17:39 | NUR ---
PT JUST FINISHED DINNER. PTs SON CAME TO VISIT AND ASKED WHO HER TECHNOLOGY SALES REPRESENTATIVE WAS, HE HAS SOME QUESTIONS AND WOULD LIKE TO SPEAK WITH VLAD. PT IS DOING OK AND MAY POSSIBLY WANT TO TAKE A SHOWER IN A BIT. SHE SAID SHE JUST FEELS "IRBAHIMA" RIGHT NOW. CALL LIGHT WITHIN REACH AND HAS ICE WATER.
--- NOTE | 2023-09-15 18:42 | NUR ---
IV PUMP ALARMING, INFUSION COMPLETE. IV SALINE LOCKED. PT STATES SHE WOULD LIKE TO SHOWER, SHOWER SUPPLIES PROVIDED. IV WRAPPED BY DEVELOPMENT CHEMIST. PT STATES NO FURTHER NEEDS AT THIS TIME, CALL LIGHT WITHIN REACH.
--- NOTE | 2023-09-15 18:58 | NUR ---
PT BACK TO BED AFTER SHOWER. DRESSING ON FACE REPLACED. NEW GOWN PROVIDED. PT STATES NO NEEDS AT THIS TIME, CALL LIGHT WITHIN REACH.
--- NOTE | 2023-09-15 19:15 | NUR ---
REPORT RECEIVED FROM DAY RN. PATIENT RESTING IN RECLINER IN ROOM. DAY SHIFT RN AND THIS RN ASSESSED RIGHT MANDIBLE SURGICAL SITE. LOOP DRAIN IN PLACE, MINIMIAL AMOUNT OF DRAINAGE NOTED ON GAUZE. PATIENT WITH NO C/O PAIN OR DISCOMFORT AT THIS TIME. CALL LIGHT WITHIN REACH.
--- NOTE | 2023-09-15 20:29 | NUR ---
ORNAMENTAL IRON WORKER OBTIANED VITALS AND BLOOD SUGAR. NO NEW I&O NOTED. PT REQUESTED A SNACK. ORNAMENTAL IRON WORKER BROUGHT PT CRACKERS AND A SUGAR FREE PUDDING. PT STATES NO FURTHER NEEDS AT THIS TIME. CALL LIGHT WITHIN REACH.
--- NOTE | 2023-09-15 20:53 | NUR ---
PATIENT SITTING ON THE SIDE OF THE BED EATTING A SNACK. DENIES ANY PAIN OR DISCOMFORT AT THIS TIME. IV ABX HUNG. IV SITE PATENT. DRESSING TO RIGHT MANDIABLE REMAINS CDI. LUNG SOUNDS CTA, BOWEL TONES ACTIVE X 4 QUADRANTS. REFUSED HS SENNA DUE TO HAVING M[place]LIPLE BOWEL MOVEMENTS TODAY. VSS. NO FURTHER NEEDS AT THIS TIME. CALL LIGHT WITHIN REACH.
--- NOTE | 2023-09-15 21:25 | NUR ---
CALL LIGHT ANSWERED. PT NEEDED TO USE BATHROOM. CAN SBA WITH IV TOWER TO BATHROOM. PT STATED SHE WOULD LIKE TO SIT IN THE CHAIR TO WATCH [place] FRM WINDOW. PT IN CHAIR AND STATES NO FURTHER NEEDS AT THIS TIME. CALL LIGHT WITHIN REACH.
--- NOTE | 2023-09-15 22:50 | NUR ---
PATIENT RESTING IN BED AWAKE WATCHING TV. NO C/O PAIN OR DISCOMFORT AT THIS TIME. IV ABX INFUSING WITH NO ISSUES. NO FURTHER NEEDS CALL LIGHT WITHIN REACH.
[2023-09-16] VITALS (7 sets, daily range): BP systolic 138–178; BP diastolic 84–96
--- NOTE | 2023-09-16 00:18 | NUR ---
PATIENT RESTING IN BED WITH EYES CLOSED. RESPIRATIONS EVEN AND UNLABORED. CALL LIGHT WITHIN REACH.
--- NOTE | 2023-09-16 01:05 | NUR ---
CALL LIGHT ANSWERED. PT NEEDED TO USE BATHROOM. VERIFIER SBA TO BATHROOM. OUT PUT NOTED. PT BACK IN BED AND STATED THAT HER JAW WAS STARTING TO HURT AND INQUIRED ABOUT PAIN MEDS. RN NOTIFIED. PT STATES NO FURTHER NEEDS AT THIS TIME. CALL LIGHT PLACED WITHIN REACH.
--- NOTE | 2023-09-16 01:17 | NUR ---
PATIENT REQUESTING PAIN MEDICATIONS. PRN GIVEN. 0200 ABX STARTED. IV SITE REMAINS PATENT. NO FURTHER NEEDS AT THIS TIME. CALL LIGHT WITHIN REACH.
--- NOTE | 2023-09-16 03:30 | NUR ---
PATIENT RESTING IN BED WITH EYES CLOSED. RESPIRATIONS EVEN AND UNLABORED. CALL LIGHT WITHIN REACH.
--- NOTE | 2023-09-16 04:19 | NUR ---
PATIENT RESTING IN BED LAYING ON HER LEFT SIDE WITH EYES CLOSED. RESPIRATIONS EVEN AND UNLABORED. CALL LIGHT WITHIN REACH.
--- NOTE | 2023-09-16 04:55 | NUR ---
call light answered, iv abx complete. iv site saline locked. gas check pad maker in room with pt to assist her to bathroom.
--- NOTE | 2023-09-16 04:58 | NUR ---
CALL LIGHT ANSWERED. IV PUMP WAS ALARMING. OUTPATIENT ADMITTING CLERK AND RN ENTERED ROOM. OUTPATIENT ADMITTING CLERK OBTAINED VITALS AND I&O. PT AMBULATED TO BATHROOM. PT STATES NO FURTHER NEEDS AT THIS TIME. CALL LIGHT WITHIN REACH.
--- NOTE | 2023-09-16 05:08 | NUR ---
PATIENT C/O HEADACHE. NIO ENTERED FOR TYLENOL.
[2023-09-16] MEDS ORDERED: ACETAMINOPHEN 500 MG TAB PO PRN (05:15)
--- NOTE | 2023-09-16 05:42 | NUR ---
PT CALLED FOR HEADACHE MEDICATION FOR 10/10 THROBBING HEADACHE. TYLENOL GIVEN, WELL CUP COFFEE, ИРИНА CRACKER AND MILK.
--- NOTE | 2023-09-16 06:38 | NUR ---
PATIENT RESTING IN BED AT THIS TIME WATCHING TV. SURGICAL ABCESS SITE REMAINS WITH OUT CHANGES FROM START OF SHIFT. GAUZE IS CDI, NO NORED DRAINAGE. LOOP DRAIN REMAINS IN PLACE. PATIENT CURRENT IV SITE BECOME "IRRITATED." APPEARS WNL AT THIS TIME. CALL LIGHT WITHIN REACH.
--- NOTE | 2023-09-16 07:20 | NUR ---
RECIEVED SHIFT REPORT FOR ARNOLD NIEVES. PT RESTING IN BED, EYES CLOSED. BREATHING EVEN AND UNLABORED. CALL LIGHT IN REACH.
--- NOTE | 2023-09-16 08:00 | NUR ---
MORNING ASSESSMENT COMPLETE. PT AWAKE, DENIES PAIN. MD AT BEDSIDE. PT ABSCESS COVERED WITH GAUZE. NO DRAIAGE NOTED. CALL LIGHT IN REACH.
--- NOTE | 2023-09-16 08:21 | NUR ---
PT IS SITTING ON THE EDGE OF THE BED EATING BREAKFAST. INDUSTRIAL SEAMSTRESS UPDATED NAMES ON THE PT BOARD AND GAVE PT AN APPLESAUCE THAT SHE REQUESTED. NO FURTHER CONCERNS CALL LIGHT IS WITHIN REACH
--- NOTE | 2023-09-16 13:37 | NUR ---
IN PT REPORTING PAIN 10/10 TO JAW "IT IS STARTING TO GO DOWN MY NECK." PRN PAIN MEDICATION ADMINISTERED, SEE MAR. PT TAKES PO MEDICATION WITH NO ISSUES. PT OFFERED ICE PACK, PT DECLINES AT THIS TIME. PT DENIES ANY OTHER NEEDS AT THIS TIME. CALL LIGHT IN REACH.
--- NOTE | 2023-09-16 19:25 | NUR ---
REPORT RECEIVED FROM DAY RN. RIGHT MANDIABLE ASSESSED WITH DAY RN AND THIS RN. SMALL AMOUNT OF BROWN DRAINAGE NOTED. LOOP DRAIN REMAINS IN PLACE. PATIENT REQUESTED ICE, ICE GIVEN. NO FURTHER NEEDS AT THIS TIME. CALL LIGHT WITHIN REACH.
--- NOTE | 2023-09-16 20:07 | NUR ---
LICENSED MORTGAGE LOAN OFFICER OBTAINED VITALS AND I&O. BLOOD SUGAR CHECKED. PT STATES NO FURTHER NEEDS AT THIS TIME. CALL LIGHT WITHIN REACH.
--- NOTE | 2023-09-16 20:39 | NUR ---
PATIENT RESTING IN BED AWAKE WATCHING TV. REPORTS SHE JUST CAME BACK TO BED FROM THE [facility]. IV ABX HUNG. DRESSING TO RIGHT MANDIABLE CHANGED. AREA WITH LIGHT BROWNISH CRUST LIKE DRAINAGE NEAR THE INCISION SITE. LOOP DRAINS REMAIN IN PLACE. PATIENT REPORTS ITCHING TO THE AREA. PRN PAIN MEDICATIONS GIVEN PER PATIENT REQUEST. IV SITE PATENT NO REDNESS OR SWELLING NOTED. PATIENT REQUESTED FRESH ICE, FRESH ICE GIVEN. NO FURTHER NEEDS AT THIS TIME CALL LIGHT WITHIN REACH.
--- NOTE | 2023-09-16 22:00 | NUR ---
PATIENT RESTING IN BED WITH EYES CLOSED. RESPIRATIONS EVEN AND UNLABORED. IV ABX INFUSING WITH NO ISSUES AT THIS TIME. IV SITE REMAINS PATENT AND FREE FROM REDNESS. CALL LIGHT WITHIN REACH.
[2023-09-17] VITALS (9 sets, daily range): BP systolic 117–164; BP diastolic 80–92
--- NOTE | 2023-09-17 | NUR ---
PATIENT RESTING IN BED WITH EYES CLOSED. RESPIRATIONS EVEN AND UNLABORED. CALL LIGHT WITHIN REACH.
--- NOTE | 2023-09-17 02:21 | NUR ---
PATIENT UP TO BATHROOM. VOIDIDNG QUANITY SUFFICIENT. 0200 ABX HUNG. DRESSING REMAINS CDI TO RIGHT MANDIABLE. DENIES ANY PAIN AT THIS TIME.NO FURTHER NEEDS CALL LIGHT WITHIN REACH.
--- NOTE | 2023-09-17 04:00 | NUR ---
PATIENT RESTING IN BED WITH EYES CLOSED. RESPRIATIONS EVEN AND UNLABORED. CALL LIGHT WITHIN REACH.
[2023-09-17 05:22] LABS: BASOPHILS 0.9 % (0-2); EOSINOPHILS 3.7 % (0-6); HEMATOCRIT 38.6 % (35.0-50.0); HEMOGLOBIN 12.5 g/dL (12.0-18.0); LYMPHOCYTES 22.7 % (24-44); MCH 29.1 (27-36); MCHC 32.2 g/dl (30-36); MCV 90.2 fl (81-99); MONOCYTES 10.6 % (0-12); NEUTROPHILS 62.1 % (39-80); PLATELET COUNT 362 K/uL (140-440); RBC 4.28 M/ul (4.3-5.7); RDW 14.5 (10.5-15.0)
[2023-09-17 05:28] LABS: ANION GAP 12.2 (7-21); BUN/CREATININE RATIO 28.57 (6.0-28.6); CREATININE, SERUM 0.77 mg/dL (0.55-1.02); POTASSIUM 4.2 mmol/L (3.5-5.1)
--- NOTE | 2023-09-17 06:00 | NUR ---
PATIENT C/O HAVING A "KINK" IN HER NECK FROM SLEEPIN GLAST NIGHT. HOT PACK GIVEN. VSS. IV SITE REMAINS WNL. GAUZE TO RIGHT MANDIABLE REMAINS CDI. NO FURTHER NEEDS AT THIS TIME. CALL LIGHT WITHIN REACH.
--- NOTE | 2023-09-17 07:21 | NUR ---
RECIEVED SHIFT REPORT FROM ARNOLD NIEVES. PT IS AWAKE IN BED. COMPLAINS OF A KINK IN NECK FROM SLEEPING WRONG. STATES HEAT PAD HELP, BUT DENIES NEEDS AT THIS TIME. CALL LIGHT IN REACH.
--- NOTE | 2023-09-17 07:57 | NUR ---
DIRECTOR OF CONTRACTS ENTERED PT ROOM TO RECORD PT BG LEVEL. PT C/O NECK PAIN AND ASKED FOR A PAIN PILL. DIRECTOR OF CONTRACTS NOTIFIED THE NURSE. BG WAS RECORDED INTO THE EMAR. PT STATES NO FURTHER COMPLAINTS OR CONCERNS AND MOVED FROM THE RECLINER TO HER BED IND. CALL LIGHT IS WITHIN REACH
--- NOTE | 2023-09-17 08:34 | NUR ---
MORNING ASSESSMENT COMPLETE. PT STATES PAIN HAS GONE DOWN 8/10 SINCE PAIN PILL. NO CHANGES IN ASSESSMENT. NO DRAINGAGE NOTED TO DRESSING. CALL LIGHT IN REACH
--- NOTE | 2023-09-17 10:48 | NUR ---
REPORT RECIEVED FROM ARNOLD CURRY. PT LAYING IN BED AND RESPONDS WHEN ADDRESSED. IV ABX COMPLETE. PT SL AT THIS TIME. PT REQUESTING ICE FOR WATER, ICE PROVIDED. PT DENIES ANY OTHER NEEDS AT THIS TIME. CALL LIGHT IN REACH.
--- NOTE | 2023-09-17 12:05 | NUR ---
IN TO ADMINISTER MEDICAITON, SEE MAR. PT SITTING UP IN RECLINER. PT RESPONDS WHEN ADDRESSED. MEDICATION ADMINISTERED, SEE MAR. LUNCH TRAY ARRIVES. PT DENIES ANY OTHER NEEDS FROM THIS RN. CALL LIGHT IN REACH.
--- NOTE | 2023-09-17 13:23 | NUR ---
IN TO ROUND ON PT. PT AMBULATING OUT OF RESTROOM TO BED. VOID NOTED. HAT IN TOILET EMPTIED. PT REPORTING BEING DONE WITH LUNCH TRAY. TRAY REMOVED. PT DENIES ANY OTHER NEEDS AT THIS TIME. CALL LIGHT IN REACH.
--- NOTE | 2023-09-17 15:08 | NUR ---
IN TO ROUND ON PT. PT SITTING UP IN BED AND RESPONDS WHEN ADDRESSED. PT REQUESTING TO AHVE BACK SCRATCHED. BACK SCRATCHED FOR PT. PT DENIES PAIN AND STATES "JUST DISCOMFORT." DRESSING TO RIGHT SIDE OF MANDIBLE C/D/I. IV ABX INFUSING WNL. PT DENIES ANY OTHER NEEDS AT THIS TIME. CALL LIGHT IN REACH.
--- NOTE | 2023-09-17 19:10 | NUR ---
REPORT RECEIVED FROM DAY RN. PATIENT RESTING IN RECLINER. IV ABX INFUSSION COMPLTED. IV SITE WNL. DENIES ANY NEEDS AT THIS TIME. CALL LIGHT WITHIN REACH.
--- NOTE | 2023-09-17 20:20 | NUR ---
PATIENT RESTING IN BED. VSS. HS MEDICATIONS GIVEN. DRESSING TO RIGHT MANDIABLE CHANGED. BROWN SCAB LIKE DRAINAGE NOTED TO OLD DRESSING. PRN GIVEN FOR PAIN. PATIENT C/O ITCHING TO JAW. HS SNACK GIVEN. VOIDING QUANITY SUFFICIENT. IV ABX INFUSING IV SITE FLUSHED WELL AND IS WNL AT THIS TIME. BOWEL TONES ACITVE X 4. LUNG SOUNDS CTA. NO FURTHER NEEDS AT THIS TIME. CALL LIGHT WITHIN REACH.
--- NOTE | 2023-09-17 22:10 | NUR ---
PATIENT RESTING IN BED WITH EYES CLOSED. RESPIRATIONS EVEN AND UNLABORED. CALL LIGHT WITHIN REACH.
[2023-09-18] VITALS (7 sets, daily range): BP systolic 134–151; BP diastolic 76–99
--- NOTE | 2023-09-18 | NUR ---
PATIENT RESTING IN BED WITH EYES CLOSED. RESPIRATIONS EVEN AND UNLABORED. CALL LIGHT WITHIN REACH.
--- NOTE | 2023-09-18 01:22 | NUR ---
CALL LIGHT ANSWERED. PATIENT WITH C/O PAIN TO RIGHT REAR SHOULDER. PATIENT DOES NOT WISH TO USE A HOT BACK. STATED, " I FEEL LIKE IT'S A PINCHED NERVE FROM LAYING IN THE BED FOR SO LONG." NOTED POSTURAL CHANGES IN UPPER TORSO IF PATIENT WAS LEANING TO THE LEFT. RN CONTACTED MD WHO GAVE TELEPHONE ORDER FOR LIDOCANE 4% PATCH TOPICAL TO AREA ONCE DAILY. ORDERS VERIFIED VIA VERBAL READ BACK.
[2023-09-18] MEDS ORDERED: LIDOCAINE HCL 4% 1 EACH PATCH TD SCH (01:30)
--- NOTE | 2023-09-18 01:58 | NUR ---
LIDOCANE PATCH APPLIED TO RIGHT REAR SHOULDER. ABX STARTED. IV SITE WNL. PRN NORCO GIVEN PATIENT RESTING IN BED, TRYING TO GET COMFORTABLE. PATIENT BELIEVES SHE IS HAVING A MUSCLE SPASM IN HER NECK OR UPPER SHOULDERS. CALL LIGHT WITHIN REACH.
--- NOTE | 2023-09-18 04:00 | NUR ---
PATIENT RESTING IN BED WITH EYES CLOSED. RESPIRATIONS EVEN AND UNLABORED. CALL LIGHT WITHIN REACH.
--- NOTE | 2023-09-18 05:50 | NUR ---
PATIENT IV COMPLETED. IV SITE NOTED TO BE RED AND SWOLLEN. RN DISCOMTINUED IV SITE AT THIS TIME DUE TO PHELBITIS LIKE SYMPTOMS. PATIENT WITH NO PAIN TO THE AREA AT THIS TIME. CALL LIGHT WITHIN REACH.
--- NOTE | 2023-09-18 07:16 | NUR ---
RECIEVED MORNING REPORT FROM ARNOLD NIEVES. PT IS AWAKE IN BED. PT STATES SHE CALLED HER SON AND REQUESTED TO HE BRING IN HER MELOXICAM FOR HER PAIN IN HER BACK AND NECK. THE RN REQUSTED PT HOLD OFF UNTIL THE MD IS NOTIFIED. PT STATES "BETTER CALL HIM NOW, MY SON IS ON HIS WAY AND I AM TAKING THAT PILL, I NEED TO FEEL BETTER". DENIES FURTHER NEEDS. CALL LIGHT IN REACH
--- NOTE | 2023-09-18 08:08 | NUR ---
MORNING ASSESSMENT COMPLETE. PT SON BROUGHT MELOXICAM. SPOKE WITH DR. POWERS WITH VERBAL ORDER TO LET PT TAKE ONE THIS AM. PRIYA WILL BE HERE TO DISCUSS WITH PT ABOUT MEDICATIONS. PT REMOVED BANDAGED ON CHIN FOR COMFORT TO EAT. REASSURED THIS RN WILL REDRESS AFTER EATING. SON AT BEDSIDE. CALL LIGHT IN REACH.
[2023-09-18] MEDS ORDERED: CEFDINIR 300 MG CAP PO SCH (10:18)
--- NOTE | 2023-09-18 11:22 | NUR ---
PAIN 5/10 (SEE EMAR). BOYE PLACED ON SURGICAL SITE TO REMIND PT TO NOT ITCH SITE. DENIES NEEDS. CALL LIGHT IN REACH.
--- NOTE | 2023-09-18 19:35 | NUR ---
Patient sitting up in chair at this time, no acute distress. Patient reports she is doing well at this time.
[2023-09-18] MEDS ORDERED: LIDOCAINE PATCH REMOVAL 1 EA TD SCH (21:00)
--- NOTE | 2023-09-19 00:22 | NUR ---
PT REPORT RECEIVED. PT AWAKE IN ROOM. NO NEEDS AT THIS TIME. CALL LIGHT IN REACH.
--- NOTE | 2023-09-19 01:42 | NUR ---
PT RESTING IN BED, EYS CLOSED. RR EVEN, UNLABORED. CALL LIGHT IN REACH.
--- NOTE | 2023-09-19 02:46 | NUR ---
PT UP TO BR AND BACK TO BED. ICE WATER PROVIDED. PT PAIN 2/, DENIES NEED FOR INTERVENTION. GAUZE CDI ON RIGHT JAW. PT STATES NO OTHER NEEDS. CALL LIGHT IN REACH.
--- NOTE | 2023-09-19 04:00 | NUR ---
PT RESTING IN BED, EYES CLOSED. RR EVEN, UNLABORED. CALL LIGHT IN REACH.
[2023-09-19 05:33] LABS: BASOPHILS 1.1 % (0-2); EOSINOPHILS 2.5 % (0-6); HEMATOCRIT 36.4 % (35.0-50.0); HEMOGLOBIN 11.7 g/dL (12.0-18.0); LYMPHOCYTES 30.6 % (24-44); MCH 28.6 (27-36); MCHC 32.2 g/dl (30-36); MCV 89.1 fl (81-99); NEUTROPHILS 55.8 % (39-80); PLATELET COUNT 319 K/uL (140-440); RBC 4.09 M/ul (4.3-5.7); RDW 13.9 (10.5-15.0)
--- NOTE | 2023-09-19 05:40 | NUR ---
VS AND I&O COMPLETED. PT DENIES PAIN BUT STATES IT IS JUST A "PRESSURE" ON HER CHIN. DRESSING IS CURRENTLY OFF THE WOUND, DRAIN INTACT. NO DRAINAGE NOTED AT THIS TIME. ICE WATER PROVIDED. PT STATES NO OTHER NEEDS. CALL LIGHT IN REACH.
[2023-09-19 05:51] LABS: ANION GAP 10.4 (7-21); CALCIUM 9.2 mg/dL (8.5-10.1); CREATININE, SERUM 0.8 mg/dL (0.55-1.02); POTASSIUM 4.4 mmol/L (3.5-5.1)
[2023-09-19 05:56] VITALS: BP 141/81
[2023-09-19 06:22] VITALS: BP 141/81
--- NOTE | 2023-09-19 06:37 | NUR ---
PT SLEPT WELL THIS SHIFT. SHE HAS NOT REQUIRED PAIN MEDICATION. WOUND HAS HAD LITTLE DRAINAGE. PT HAS BEEN INDEPENDENT IN THE ROOM.
--- NOTE | 2023-09-19 07:20 | NUR ---
RECIEVED REPORT FROM ARNOLD SINGER. PT IS IN THE BATHROOM. REQUESTING MELOXICAM THIS AM. TALKED TO DERICK FROM PHARMACY AND WILL PUT PT MEDICATION IN EMAR TO RECIEVE THIS MORNING. PT ALSO REQUESTING PAIN PILL FOR NECK PAIN WILLING TO WAIT TILL MORNING MEDS. CALL LIGHT IN REACH.
--- NOTE | 2023-09-19 07:45 | NUR ---
Patient appears to be in a good mood, Board has been updated and blood glucose has been checked. Call light has beenplaced within reach
[2023-09-19 08:56] VITALS: BP 135/74
[2023-09-19] MEDS ORDERED: MELOXICAM 15 MG TAB PO SCH (09:00)
--- NOTE | 2023-09-19 13:18 | NUR ---
VISITED DURING SPIRITUAL CARE ROUNDS. PT IN GOOD SPIRITS, EXHIBITED STRONG MAR[employer]OURCES, DENIED IMMEDIATE NEEDS. PROVIDED HOSPITALITY, SUPPORTIVE PRESENCE, PRAYTER. PT EXPRESSED GRATITUDE, HOPE.
[2023-09-19 13:30] VITALS: BP 133/82
[2023-09-19] MEDS ORDERED: metFORMIN HCL 500 MG TAB PO SCH (17:00)
--- NOTE | 2023-09-19 17:02 | NUR ---
AFTERNOON ASSESSMENT COMPLETE. PT HAS GUAZE REMOVED, LOOP DRAIN REMAINS INTACT. PT DENIES DISCOMFORT. CALL LIGHT IN REACH.
--- NOTE | 2023-09-19 18:24 | NUR ---
PT CALLED THIS RN. PT ITCHED SKIN AND LOOP DRAIN CAME OUT. SITE IS BLEEDING. DR POWERS NOTIFIED. DR POWERS STATES PUT A BANDAGE OVER IT AND IF IT DOESNT STOP BLEEDING TO CALL THE DOCTOR IN A HOUR. GUAZE APPLIED TO THE SURGICAL SITE SECURED BY TAPE. PT STATES SHE HAS A BURNING PAIN. PAIN MEDICATIONS ADMINISTERED (PER EMAR).
[2023-09-19 18:38] VITALS: BP 147/79
--- NOTE | 2023-09-19 19:05 | NUR ---
BEDSIDE REPORT RECEIVED, PT SITTING UP IN THE CHAIR VISITING WITH SON, PT CHEERFUL, DENIES NEEDS AT THIS TIME.
[2023-09-19 20:38] VITALS: BP 153/79
--- NOTE | 2023-09-19 20:45 | NUR ---
PT AWAKE AND ALERT, CHEERFUL, VS STABLE, ACCUCHECK 172, 1 UNIT SS GIVEN PER ORDER, RIGHT JAW WITHOUT FURTHER DRAINAGE, DRESSING DRY AND INTACT, LIDOCAINE PATCH REMOVED FROM UPPER BACK, PT REQUEST SNACK AT APPROX 2230, SITTING ON SIDE OF BED, GAIT STEAD, ALERT AND ORIENTENED.
--- NOTE | 2023-09-19 23:00 | NUR ---
SNACK GIVEN PER SINRADHA VELA, PT WITHOUT OTHER REQUESTS.
[2023-09-20 00:17] VITALS: BP 153/79
--- NOTE | 2023-09-20 00:23 | NUR ---
PT UP IN CHAIR, COMPLAINED OF 4/10 RIGHT JAW PAIN. STATES SHE HAD BEEN IN BED BUT RESTLESS SO UP IN CHAIR AT THIS TIME. FRESH ICE WATER PER FIBREGLASS GUN HAND.
--- NOTE | 2023-09-20 01:20 | NUR ---
PT AWAKE AND ALERT, SITTING ON SIDE OF BED, READING ON IPAD, DENIES PAIN AT THIS TIME, STATES SHE WILL ATTEMPT TO SLEEP SOON, FRESH ICE GIVEN PER REQUEST, JAW DRESSING DRY WITHOUT DRAINAGE NOTED.
--- NOTE | 2023-09-20 03:10 | NUR ---
PT APPEARS TO SLEEP, LAYING ON RIGHT SIDE, RESP REG.
[2023-09-20 04:50] VITALS: BP 150/87
--- NOTE | 2023-09-20 04:50 | NUR ---
PT AWAKE, VS DONE AND STABLE, PT DENIES NEED FOR PAIN MED, UP TO BR TO VOID, BACK TO BED, RIGHT SIDE OF FACE WITH SWELLING IT WAS EARILIER, PT STATES HER RIGHT EAR FEELS "PLUGGED", PT NOTED TO HAVE SLEPT ON HER RIGHT SIDE MOST OF NIGHT, PT HOPEFUL TO GO HOME AFTER MRI DONE TODAY.
--- NOTE | 2023-09-20 05:20 | NUR ---
PT SITTING ON SIDE OF BED, COFFEE GIVEN PER REQUEST, PT CHEERFUL AND TALKATIVE.
[2023-09-20 05:31] VITALS: BP 150/87
--- NOTE | 2023-09-20 07:27 | NUR ---
REPORT RECEIVED FROM ARNOLD SOW. PT LAYING OF AFFECTED SIDE WITH EYES CLOSED. CALL LIGHT IN REACH.
--- NOTE | 2023-09-20 07:38 | NUR ---
Board has been updated and Blood Glucose has been checked. Patient reports pain level 7. RN has been notified. Call light has been placed within reach
--- NOTE | 2023-09-20 08:26 | NUR ---
PT SITTING UP IN CHAIR AFTER USING RESTROOM. MORNING ASSESSMENT COMPLETE AND MEDS ADMINISTERED. PT DENIES CONCERNS AND IS HOPING TO GO HOME AFTER MRI AT 0930. BP SLIGHTLY ELEVATED BUT COZAAR GIVEN. PT REPORTS SWELLING HAS RECEDED SIGNIFICANTLY SINCE ADMISSION AND EVEN SINCE LAST NIGHT. INCISION SITE DRY AND SCABBED
[2023-09-20] MEDS ORDERED: LOSARTAN POTASSIUM 100 MG TAB PO SCH (09:00)
--- NOTE | 2023-09-20 09:59 | NUR ---
PT OFF FLOOR IN MRI
--- NOTE | 2023-09-20 10:15 | NUR ---
PT BACK IN ROOM FROM MRI
[2023-09-20 10:28] VITALS: BP 155/79
--- NOTE | 2023-09-20 10:38 | NUR ---
PT IN CHAIR. PT DENIES PAIN. PT DENIES ANY NEEDS AT THIS TIME. PT CALL LIGHT IN REACH.
[2023-09-20] MEDS ORDERED: CEFDINIR300 MG PO (11:02)
--- NOTE | 2023-09-20 12:45 | NUR ---
PT SITTING AT EDGE OF BED EATING LUNCH. PT STILL AWAITING RIDE. PT DECLINES CARE RIDE. PT DENIES ANY NEEDS AT THIS TIME. CALL LIGHT IN REACH
[2023-09-20 13:13] VITALS: BP 152/86
== END 2023-09-20 14:25 | disposition home or self-care (01) | DRG 639 ==
LOC: ED 03:25 → MS 06:59
PROVIDERS: Family Medicine; ADMIT Internal Medicine; ATTEND Internal Medicine
DX: E11.69 Type 2 diabetes mellitus with other specified complication (principal); M27.2 Inflammatory conditions of jaws; J44.9 Chronic obstructive pulmonary disease, unspecified; G47.30 Sleep apnea, unspecified; Z88.0 Allergy status to penicillin; Z88.1 Allergy status to other antibiotic agents; Z88.8 Allergy status to other drugs, medicaments and biological substances; Z79.51 Long term (current) use of inhaled steroids; Z79.1 Long term (current) use of non-steroidal anti-inflammatories (NSAID); Z79.84 Long term (current) use of oral hypoglycemic drugs; Z72.0 Tobacco use
CPT/HCPCS: 36415; 70491; 70543; 80048; 80053; 85025; 85651; 86140; 87070; 87075; 87205; A9270; A9579; J1335; J1650; J1815; J2185; J2270; J3490; Q9967

== ENCOUNTER 2025-02-21 16:33 | Emergency (ER) | payer MEDICARE, OTHER ==
[~2025-02-21] VITALS: Ht 160 cm; Wt 76.3 kg
[~2025-02-21 16:33] MED LIST changes: +ATORVASTATIN CA40 MG PO; +CEFDINIR300 MG PO; +FLUTICASONE PRO12 GM NAS; +FUROSEMIDE20 MG PO; +GLIPIZIDE ER2.5 MG PO; +LOSARTAN POTAS100 MG PO; +MELOXICAM15 MG PO; +METFORMIN HCL1000 MG PO; +METRONIDAZOLE500 MG PO; +OMEPRAZOLE10 MG PO; +POTASSIUM CHLO10 ME2 PO; +SPIRIVA RESPIMAT4 G1 INH; +TRAMADOL HCL50 MG PO; +VENTOLIN HFA18 GM INH
[2025-02-21 19:25] VITALS: BP 165/142
== END 2025-02-21 19:25 | disposition left against medical advice (07) ==
LOC: ED 16:33
DX: Z53.21 Procedure and treatment not carried out due to patient leaving prior to being seen by health care provider (principal)